=== PATIENT | male | born 1930 | race Caucasian/White ===

== ENCOUNTER 2017-07-21 10:05 | Outpatient (CLI) | payer OTHER ==
--- NOTE | 2017-07-21 11:36 | RAD ---
LUMBAR SPINE 3 VIEWS: HISTORY: Arthritic. Back pain. FINDINGS: Lumbar vertebrae maintain normal height and alignment. Loss of disk space is prominent at L4-5 and L 5-S1. There are prominent hypertrophic osteophytes seen from all lumbar vertebrae, especially promin ent anteriorly at L1-2, L2-3, and L3-4. Facet hypertrophy is prominent. IMPRESSION: Moderate hypertrophic degenerative changes. POS: [facility]
--- NOTE | 2017-07-21 11:36 | RAD ---
AP PELVIS: History: Arthritis. Pelvic and hip pain. FINDINGS: There has been prior internal fixation of a proximal femur fracture on the right with intermedullary eyni and pin transfixing the femoral neck. There are moderate degenerative changes at both hips with joint narrowing and mild spurring. Femoral head contour is preserved bilaterally. Bony pelvis is intact. IMPRESSION: 1. 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 2. Post-operative changes of the right hip. POS: [facility]
--- NOTE | 2017-07-21 11:38 | RAD ---
RIGHT HIP TWO VIEWS: History: Hip pain, arthritis. FINDINGS: Following internal fixation procedure the intramedullary yeni and pin transfix the femoral neck appare ntly from an old intertrochanteric fracture. No acute fracture is seen. Degenerative changes of the h ip noted with spurring from the femoral head and acetabulum. Mild medial joint narrowing. IMPRESSION: Post-operative and degenerative changes of right hip noted. POS: [facility]
== END 2017-07-21 10:06 | disposition home or self-care (01) ==
LOC: RAD 10:05
PROVIDERS: ATTEND Orthopaedic Surgery
DX: M13.80 Other specified arthritis, unspecified site (principal); Z98.890 Other specified postprocedural states
CPT/HCPCS: 72100; 72170